=== PATIENT | female | born 1985 | race Hispanic/Latino ===

== ENCOUNTER 2021-03-29 15:01 | Outpatient (CLI) | payer OTHER ==
[2021-04-02 12:34] LABS: Vitamin D, 25-OH, D2 <4 ng/mL
== END 2021-03-29 15:02 | disposition home or self-care (01) ==
LOC: LAB 15:01
PROVIDERS: ATTEND Surgery
DX: Z13.1 Encounter for screening for diabetes mellitus (principal); E55.9 Vitamin D deficiency, unspecified; E66.01 Morbid (severe) obesity due to excess calories; K30 Functional dyspepsia
CPT/HCPCS: 36415; 82306; 83036

== ENCOUNTER → 2021-04-10 | Outpatient (CLI) | payer OTHER | END | disposition home or self-care (01) | LOC: SLR 11:00 | PROVIDERS: ATTEND Surgery | DX: G47.30 Sleep apnea, unspecified (principal) | CPT/HCPCS: 95810 ==

== ENCOUNTER 2021-04-24 09:08 | Outpatient (CLI) | payer OTHER ==
--- NOTE | 2021-04-24 13:17 | Fluoroscopy Report ---
BARIUM SWALLOW Indication: MORBID OBESITY. Technique: Single and double contrast barium technique utilized to evaluate the esophagus. FINDINGS: To begin the exam, swallowing was evaluated in the lateral position under direct fluorosco py. Swallowing was normal. No mucosal irregularity, mass, mass effect, or critical stenosis. There were no abnormal tertiary c ontractions as seen with dysmotility. No gastroesophageal reflux. IMPRESSION: Unremarkable exam. Fluoroscopic time: 1.0 minutes Number of fluoroscopic images: 27 Signer Name: Domingo Torres Jr, MD Signed: 04/24/2021 1:13 PM Workstation Name: [id number]
== END 2021-04-24 09:09 | disposition home or self-care (01) ==
LOC: FLUORO 09:08
PROVIDERS: ATTEND Surgery
DX: E66.01 Morbid (severe) obesity due to excess calories (principal)
CPT/HCPCS: 74220

== ENCOUNTER 2021-05-04 11:08 | Outpatient (CLI) | payer OTHER | END 2021-05-04 11:09 | disposition home or self-care (01) | LOC: LAB 11:08 | PROVIDERS: ATTEND Surgery | DX: E66.01 Morbid (severe) obesity due to excess calories (principal) | CPT/HCPCS: 36415; 82607; 84703 ==

== ENCOUNTER 2021-05-29 09:26 | Inpatient (IN) | payer OTHER ==
[2021-05-25 10:44] LABS: Hematocrit 36.2 % (30.3-42.9); Hemoglobin 11.8 gm/dl (10.1-14.3); Mean Corpuscular HGB Conc 33 % (30-34); Mean Corpuscular Volume 88 fl (79-97); Platelet Count 339 K/mm3 (140-440); Red Blood Count 4.12 M/mm3 (3.65-5.03); Red Cell Distribution Width 15.7 % (13.2-15.2)
[2021-05-25 11:06] LABS: Alanine Aminotransferase 15 units/L (7-56); BUN/Creatinine Ratio 10; Blood Urea Nitrogen 7 mg/dL (7-17); Calcium 8.9 mg/dL (8.4-10.2); Hemolysis Index 3
--- NOTE | 2021-05-25 11:08 | Anesthesia Consultation ---
Anesthesia Consult and Med Hx Date of service: 05/29/21 - Airway Anesthetic Teeth Evaluation: Good (missing implant #12 (screw remains), caps/veneers upper incisors) ROM Head & Neck: Adequate Mental/Hyoid Distance: Adequate Mallampati Class: Class II Intubation Access Assessment: Probably Good - Pulmonary Exam CTA: Yes - Cardiac Exam Cardiac Exam: RRR - Pre-Operative Health Status ASA Pre-Surgery Classification: ASA3 Proposed Anesthetic Plan: General - Pulmonary Hx Smoking: Yes (quit 6 yrs ago) Hx Respiratory Symptoms: No (normal PFTs) Hx Sleep Apnea: No (negative sleep study) - Cardiovascular System Hx Hypertension: No Hx Heart Attack/AMI: No (negative stress TTE w/ normal EF) Hx Cardia Arrhythmia: No - Central Nervous System CVA: No Hx Psychiatric Problems: Yes (depression) - Gastrointestinal Hx Gastroesophageal Reflux Disease: Yes (controlled with prilosec) - Endocrine Hx Renal Disease: No Hx Liver Disease: No Hx Insulin Dependent Diabetes: No Hx Non-Insulin Dependent Diabetes: No Hx Thyroid Disease: No - Other Systems Hx Obesity: Yes (BMI 42) - Additional Comments Anesthesia Medical History Comments: No hx anesthetic complications.
[~2021-05-29 09:26] MED LIST: ENOXAPARIN 40 MG/0.4 ML INJ SUB-Q NR; GABAPENTIN 500 MG/10 ML ORAL LIQD PO NR; LACTATED RINGERS 1,000 ML IV SCH; MIDAZOLAM 2 MG/2 ML INJ IV NR; SCOPOLAMINE TRANSDERMAL PATCH 72 HR TD NR; ceFAZolin/Water 2 GM/20 ML 2 GM/20 ML SYRINGE IV NR; metroNIDAZOLE/NS 500 MG/100 ML 500 MG/100 ML BAG IV NR
[2021-05-29] MEDS: ACETAMINOPHEN IV 1,000 MG/100 ML BOTTLE IV NR ×2 (11:30→20:49)
[2021-05-29] MEDS ORDERED: MAGNESIUM SULFATE 4 GM/100 ML BAG IV ONE (11:49)
[2021-05-29] MEDS ORDERED: BUPIVACAINE/PF (0.25%) 2.5 MG/ML 30 ML VIAL INFILTRATI ONE ×2 (11:50→12:42)
[2021-05-29] MEDS ORDERED: LIDOCAINE 1%/EPINEPHRINE 1:100,000 VIAL (20 ML) INFILTRATI ONE (11:50)
[2021-05-29] MEDS ORDERED: ONDANSETRON 4 MG/2 ML INJ IV PRN ×2 (11:56→16:00)
[2021-05-29] MEDS ORDERED: fentaNYL 100 MCG/2 ML INJ IV PRN (11:56)
--- NOTE | 2021-05-29 11:57 | Anesthesia Day of Surgery ---
Anesthesia Day of Surgery - Day of Surgery Patient Examined: Yes Patient H&P Reviewed: Yes Patient is NPO: Yes
--- OUTSIDE RECORDS SUMMARY | 2021-05-29 11:58 | External Medical Summary ---
:1985 Author Organization [facility], [facility] Address [address] [place] [address] Care Team Providers Name Role Phone Hari Nieves Unavailable [phone] PROBLEMS Type Condition ICD9-CM [id number] Onset Condition W/U Status Risk SNOM ED Notes Code Code Dates Status Code Problem Dietary Z71.3 Active confirmed 490898475 counseling and surveillance Problem Morbid E66.01 Active confirmed 064126892 (severe) obesity due to excess calories Problem Major F32.9 Active confirmed 25079128 depressive disorder, single episode, unspecified Problem Bipolar F31.9 Active confirmed 69706712 disorder, unspecified Problem Gastro-esopha K21.9 Active confirmed 401794 [id number] geal reflux disease without esophagitis Problem Benign G93.2 Active confirmed 63852781 intracranial hypertension Problem Sleep G47.9 Active confirmed 05003435 disorder, unspecified Problem Anxiety F41.9 Active confirmed 112913964 disorder, unspecified ALLERGIES No Known Allergies ENCOUNTERS from 1985 to 2021-05-29 Encounter Location Date Provider Diagnosis [address] [place], [facility] [place] [place] [id number] IMMUNIZATIONS No Information SOCIAL HISTORY Sex Assigned At : Social History Observation Description Sex Assigned At Unknown REASON FOR REFERRAL from 1985 to 2021-05-29 Diagnosis 1 Morbid (severe) obesity due to excess calories (E66.01) Diagnosis 2 Major depressive disorder, s jurgen episode, unspecified (F32.9) Diagnosis 3 Anxiety disorder, unspecifie d (F41.9) Diagnosis 4 Benign intracranial hyperten shawn (G93.2) Diagnosis 5 Gastro-esophageal reflux dis ease without esophagitis (K21.9) Diagnosis 6 Sleep disorder, unspecified (G47.9) Diagnosis 7 Bipolar disorder, unspecifie d (F31.9) Diagnosis 8 Dietary counseling and surve illance (Z71.3) Referral Organization [facility] Referring Provider First Name Hari Referring Provider Last Name Ezequiel Referring Provider Specialty Surgery Referred Provider [facility], - Referral Priority Routine VITAL SIGNS No information MEDICATIONS Medication SIG (Take, Route, Notes Start Date End Date Status Frequency, Duration) Ondansetron 4 MG 1-2 tablet on the tongue Apr, Active and allow to dissolve Orally q 4-6 hours prn pain for 30 day(s) PriLOSEC OTC 20 MG 1 tablet 30 minutes Active before morning meal Orally Once a day for 30 day(s) Xanax 1 MG 1 tablet Orally Twice a prn A ctive day Omeprazole 40 MG 1 capsule Orally Once a Apr, Active day for 30 day(s) traMADol HCl 50 MG 1 tablet as needed Active Orally Once a day SEROquel 200 MG 1 tablet at bedtime Active Orally Once a day for 30 day(s) Lexapro 20 MG 1 tablet Orally Once a Active day for 30 day(s) LaMICtal 150 MG 1 tablet Orally Once a Active day for 30 day(s) [place] [employer] Carbonate ER 450 1 tablet at bedtime bid Active MG Orally Once a day for 30 day(s) PROCEDURES No Information RESULTS No Results REASON FOR VISIT Gastric Bypass MEDICAL (GENERAL) HISTORY Type Description Date Medical History pseudo tumor cerebri Medical History depression Medical History anxiety Medical History gerd Medical History bipolar Surgical History Surgical History abdominoplasty 2018 Surgical History breast augmentation 2018 Hospitalization History as above Goals Section No Information Health Concerns No Information MEDICAL EQUIPMENT No Information MENTAL STATUS No Information FUNCTIONAL STATUS No Information ASSESSMENTS No Information PLAN OF TREATMENT Medication Medication Name Sig Start Date Stop Date Omeprazole 40 MG 1 capsule Orally Once a day for 30 day(s) 24 p2020 Ondansetron 4 MG 1-2 tablet on the tongue and allow to 24 Apr, 021 dissolve Orally q 4-6 hours prn pain for 30 day(s) Referrals Referral Date Details Insurance Providers Payer Name Payer Payer Insured Patient Coverage Coverage End Address Phone Name Relationship to Start Date Shamir e Insured [employer] [address] Kelsey Young [facility] [address]
[2021-05-29] MEDS ORDERED: LIDOCAINE MPF (2%) 20 MG/1 ML VIAL 5 ML ONE ×5 (11:59→13:21)
[2021-05-29] MEDS ORDERED: ROCURONIUM 50 MG/5 ML INJ IV ONE ×2 (11:59→13:21)
[2021-05-29] MEDS ORDERED: KETAMINE/STERILE WATER 50 MG/ML SYRINGE ONE (11:59)
[2021-05-29] MEDS ORDERED: SODIUM CHLORIDE 0.9% IRR 1,500 ML BOTTLE IR ONE (12:42)
[2021-05-29] MEDS ORDERED: LIDOCAINE 0.5%/EPINEPHRINE 1:200,000 VIAL (50 ML) MDV INFILTRATI ONE (12:42)
[2021-05-29] MEDS ORDERED: dexAMETHasone 20 MG/5 ML VIAL ONE (13:20)
[2021-05-29] MEDS ORDERED: SODIUM CHLORIDE P/F VIAL 10 ML 10 ML ONE (13:21)
[2021-05-29] MEDS ORDERED: propofoL 200 MG/20 ML VIAL IV ONE (13:52)
[2021-05-29] MEDS ORDERED: NEOSTIGMINE 10MG/10 ML INJ MDV ONE (14:31)
[2021-05-29] MEDS ORDERED: GLYCOPYRROLATE 0.4 MG/2 ML INJ ONE ×2 (14:31→15:11)
[2021-05-29] MEDS ORDERED: LACTATED RINGERS 1,000 ML ONE (14:31)
[2021-05-29] MEDS ORDERED: KETOROLAC 30 MG/1 ML INJ ONE (14:36)
[2021-05-29] MEDS ORDERED: hydrALAZINE 20 MG/1 ML INJ IV PRN (15:00)
[2021-05-29] MEDS ORDERED: LACTATED RINGERS 1,000 ML IV SCH (15:00)
--- NOTE | 2021-05-29 15:01 | Operative Report ---
Operative Report Operative Report: DATE OF PROCEDURE: 05/29/2021 SURGEON: Hari Nieves M.D. WARP KNIT OPERATOR: Shana Pineda CSA MD PREOPERATIVE DIAGNOSIS: Morbid obesity. POSTOPERATIVE DIAGNOSES: Morbid obesity PROCEDURES PERFORMED: 1. Laparoscopic gastric bypass. 2. EGD. ANESTHESIA: General endotracheal tube intubation. SPECIMENS: None. ESTIMATED BLOOD LOSS: Less than 20 mL. FINDINGS: Normal anatomy. COMPLICATIONS: None. INDICATION: Ms. Young is a 36-year-old female with history of morbid obesity and GERD who is here for bariatric surgery for weight loss. She signed informed consent and expressed understanding of risks and benefits. DESCRIPTION OF PROCEDURE: Patient was brought to the OR suite, laid in supine position. Bilateral lower extremity SCDs were placed. General anesthesia was induced via successful endotracheal tube intubation. Patient's abdomen was prepped and draped in sterile fashion. A veress needle was used to insuflate the abdomen to a pressure of 18 mmHg in the left subcostal region. Using Optiview technique, a 5- mm trocar was placed into the abdominal cavity under direct vision just superior and to the left of the umbilicus. There was noted to be no gross injury to any intraabdominal structures. 12 mm in the right mid abdomen mid clavicular line and three 5-mm trocars in the right upper quadrant, epigastric areas were placed under direct visualization. At this time, the ligament of Treitz identified and followed down approximately 60 cm and the jejunum was transected. The distal segment of jejunum was then traced for approximately 80 cm and a stable [id number] jejunojejunostomy was performed. The common enterotomy was closed with 2 firings of the endoscopic stapler. The mesenteric defect was closed with running Surgidac suture. This anastomosis was found to be patent without kink, obstruction or bleeding. At this time, the patient was placed in steep reverse Trendelenburg position. A liver retractor was placed through the epigastric port to elevate the left lateral lobe of the liver. A small gastric pouch was formed with serial firings of the blue load on a laparoscopic stapler. The Joy limb was then brought in an antegastric antecolic fashion and secured with 2 stay sutures to the gastric pouch. After this, the enterotomies were made with Harmonic scalpel, and a [id number] stapled gastrojejunostomy was performed with a mechanical stapler. After this, a 2-layer running closure using absorbable V-lock suture were done, the first being mucosal approximation prior to completion of the first layer. Then I passed and an EGD scope beyond the anastomosis to act as a stent. The first layer was completed, the second was then performed. After this, the EGD was retracted slightly. A bowel clamp was placed in a proximal Joy limb. The anastomosis was submerged under saline. Via intraluminal EGD insufflation, there was noted be no bubbles in the saline indicating an airtight anastomosis. There was noted to be no obstruction or bleeding intraluminally in the pouch or the anastomosis. At this time, the scope was removed. The saline was aspirated. Vistaseal was placed over the anastomosis. All trocars were removed under direct visualization and the abdomen was then desufflated. A TAP block was performed using a total of 60 mL 0.25% Marcaine along bilateral mid axillary lines starting at the subcostal margin at the level of the umbilicus. The 12mm trocar site was closed using POD and a Leland Yamile device for fear that after surgery it become incarcerated. The skin incisions were closed with 4-0 Monocryl followed by Dermabond dressings. Patient was awoken and taken to recovery in stable condition. All counts were correct.
[2021-05-29] MEDS ORDERED: GLYCOPYRROLATE 0.4 MG/2 ML INJ IV NR (15:22)
[2021-05-29] MEDS ORDERED: HYDROmorphone 1 MG/1 ML INJ IV PRN (15:30)
[2021-05-29] MEDS ORDERED: HYDROcodone/Acetaminophen 7.5-325MG-15ML ORAL LIQD PO PRN (16:00)
[2021-05-29] MEDS ORDERED: MORPHINE 2 MG/1 ML INJ IV PRN (16:00)
[2021-05-29] MEDS ORDERED: METOCLOPRAMIDE 10 MG/2 ML INJ IV PRN (16:00)
--- NOTE | 2021-05-29 16:05 | Post Anesthesia Evaluation ---
- Post Anesthesia Evaluation Patient Participated: Yes Airway Patent: Yes Stable Respiratory Function: Yes Nausea/Vomiting: No Temp > 96.8F: Yes Pain Manageable: Yes Adequeate Hydration: Yes Anesthesia Complications: No
[2021-05-29] MEDS: metroNIDAZOLE/NS 500 MG/100 ML 500 MG/100 ML BAG IV SCH (16:27)
[2021-05-29] MEDS: ACETAMINOPHEN IV 1,000 MG/100 ML BOTTLE IV SCH ×2 (17:12→22:30)
[2021-05-29] MEDS: PANTOPRAZOLE 40 MG INJ IV SCH (17:12)
[2021-05-29] MEDS: KETOROLAC 30 MG/1 ML INJ IV SCH ×2 (17:22→20:48)
[2021-05-29] MEDS ORDERED: LORazepam 2 MG/ML VIAL IV PRN (17:34)
[2021-05-29] MEDS: ceFAZolin/NS 1 GM/50 ML 1 GM/50 ML BAG IV SCH (18:05)
[2021-05-29] MEDS: HYDROmorphone 1 MG/1 ML INJ IV PRN (22:00)
[2021-05-29] MEDS ORDERED: LAMOTRIGINE 100 MG PO SCH (22:00)
[2021-05-30] MEDS: ceFAZolin/NS 1 GM/50 ML 1 GM/50 ML BAG IV SCH (00:30)
[2021-05-30] MEDS: SIMETHICONE 80 MG CHEW TAB PO PRN ×2 (00:57→13:37)
[2021-05-30] MEDS: HYDROmorphone 1 MG/1 ML INJ IV PRN ×2 (00:57→07:52)
[2021-05-30] MEDS: metroNIDAZOLE/NS 500 MG/100 ML 500 MG/100 ML BAG IV SCH ×2 (01:00→14:15)
[2021-05-30] MEDS: KETOROLAC 30 MG/1 ML INJ IV SCH ×3 (03:45→16:19)
[2021-05-30 08:17] LABS: Basophils % (Auto) 0.2 % (0.0-1.8); Eosinophils % (Auto) 0.1 % (0.0-4.3); Hematocrit 28.3 % (30.3-42.9); Hemoglobin 9.1 gm/dl (10.1-14.3); Lymphocytes # (Auto) 2.3 K/mm3 (1.2-5.4); Lymphocytes % (Auto) 19.5 % (13.4-35.0); Mean Corpuscular HGB Conc 32 % (30-34); Mean Corpuscular Volume 87 fl (79-97); Monocytes # (Auto) 0.8 K/mm3 (0.0-0.8); Monocytes % (Auto) 6.4 % (0.0-7.3); Platelet Count 335 K/mm3 (140-440); Red Blood Count 3.27 M/mm3 (3.65-5.03); Red Cell Distribution Width 14.6 % (13.2-15.2)
[2021-05-30 08:32] LABS: Alanine Aminotransferase 16 units/L (7-56); Albumin 3.8 g/dL (3.9-5); Blood Urea Nitrogen 11 mg/dL (7-17); Calcium 8.7 mg/dL (8.4-10.2); Hemolysis Index 4
[2021-05-30 08:39] LABS: BUN/Creatinine Ratio 16
[2021-05-30] MEDS ORDERED: ENOXAPARIN 40 MG/0.4 ML INJ SUB-Q SCH (10:00)
[2021-05-30] MEDS ORDERED: NON-FORMULARY EACH (Escitalopram Oxalate [Lexapro] 20 MG Tablet) PO SCH (10:00)
[2021-05-30] MEDS: PANTOPRAZOLE 40 MG INJ IV SCH (10:49)
[2021-05-30] MEDS: ACETAMINOPHEN IV 1,000 MG/100 ML BOTTLE IV SCH ×2 (13:23→14:16)
--- NOTE | 2021-05-30 13:59 | Discharge Summary ---
Providers - Providers Date of Admission: 05/29/21 09:26 Date of discharge: 05/30/21 Attending physician: PRINCESS ALEXANDRA MD 05/29/21 14:52 Physical Therapy Evaluation and Treat [CONS] Routine Comment: Reason For Exam: s/p bariatric surgery Primary care physician: MARGI MATUTE Hospitalization Reason for admission: post bariatric surgery Condition: Good Procedures: lap gastric bypass Hospital course: Patient was admitted status post an uneventful laparoscopic gastric bypass. P dre remained afebrile and stable throughout her hospital stay with acceptable vital signs and laboratory values. Patient was discharged home on postop day 1 tolerating clear liquid diet ambulating well and showing no gross clinical signs of leak or bleeding. Disposition: 01 HOME / SELF CARE / HOMELESS Final Discharge Diagnosis (Prints w/discharge instructions): morbid obesity, gerd, pseudo tumore cerebri Core Measure Documentation - Palliative Care Palliative Care/ Comfort Measures: Not Applicable - Core Measures Any of the following diagnoses?: none Exam - Constitutional Vitals: Temp Pulse Resp BP Pulse Ox 98.0 F 63 16 115/68 98 05/30/21 11:20 05/30/21 03:05 05/30/21 11:20 05/30/21 11:20 05/30/21 10:00 General appearance: Present: no acute distress, obese - EENT Eyes: Absent: scleral icterus - Respiratory Respiratory effort: normal - Cardiovascular Heart Sounds: Present: S1 & S2 - Extremities Extremities: no ischemia - Abdominal General gastrointestinal: Present: other (Incisions clean dry and intact, probably tender palpation) Plan Activity: advance as tolerated Diet: clear liquids Wound: open to air, keep clean and dry Follow up with: MARGI MATUTE MD [Primary Care Provider] - 7 Days
[2021-05-30] MEDS ORDERED: metroNIDAZOLE/NS 500 MG/100 ML 500 MG/100 ML BAG IV SCH (15:00)
[2021-05-30 16:08] VITALS: BP 132/74
== END 2021-05-30 17:00 | disposition home or self-care (01) | DRG 621 ==
LOC: 3A 09:26 → 4A 11:47
PROVIDERS: ADMIT Surgery; ATTEND Surgery
PROC: 0D164ZA Bypass Stomach to Jejunum, Percutaneous Endoscopic Approach (ICD-10-PCS; principal; 2021-05-29)
PROC: 3E0T3BZ Introduction of Anesthetic Agent into Peripheral Nerves and Plexi, Percutaneous Approach (ICD-10-PCS; 2021-05-29)
PROC: 3E0T33Z Introduction of Anti-inflammatory into Peripheral Nerves and Plexi, Percutaneous Approach (ICD-10-PCS; 2021-05-29)
DX: E66.01 Morbid (severe) obesity due to excess calories (principal); K21.9 Gastro-esophageal reflux disease without esophagitis; F41.9 Anxiety disorder, unspecified; Z20.822 Contact with and (suspected) exposure to COVID-19; G93.2 Benign intracranial hypertension; F31.9 Bipolar disorder, unspecified; Z68.41 Body mass index [BMI] 40.0-44.9, adult; Z79.899 Other long term (current) drug therapy; Z87.891 Personal history of nicotine dependence
CPT/HCPCS: 36415; 80053; 84703; 85025; 85027; G0378; C9113; J0131; J0690; J1100; J1170; J1650; J1885; J2270; J2405; J2704; J2710; J3475; J3490; J7120; U0003

== ENCOUNTER 2021-06-28 10:02 | Outpatient (CLI) | payer OTHER ==
[2021-06-28 10:26] LABS: Basophils % (Auto) 0.3 % (0.0-1.8); Eosinophils # (Auto) 0.1 K/mm3 (0.0-0.4); Eosinophils % (Auto) 2.7 % (0.0-4.3); Hematocrit 35.2 % (30.3-42.9); Hemoglobin 11.1 gm/dl (10.1-14.3); Lymphocytes # (Auto) 1.5 K/mm3 (1.2-5.4); Mean Corpuscular HGB Conc 32 % (30-34); Mean Corpuscular Volume 86 fl (79-97); Monocytes # (Auto) 0.4 K/mm3 (0.0-0.8); Monocytes % (Auto) 9.4 % (0.0-7.3); Platelet Count 276 K/mm3 (140-440); Red Blood Count 4.12 M/mm3 (3.65-5.03); Red Cell Distribution Width 16.8 % (13.2-15.2)
[2021-06-28 13:37] LABS: Alanine Aminotransferase 13 units/L (7-56); Albumin 4.2 g/dL (3.9-5); BUN/Creatinine Ratio 18; Blood Urea Nitrogen 14 mg/dL (7-17); Calcium 9.1 mg/dL (8.4-10.2); Chol/HDL Ratio 5.08 %; HDL Cholesterol 34 mg/dL (40-59); Hemolysis Index 4; Iron 12 ug/dL (37-170); LDL Cholesterol,Direct 108 mg/dL (50-130); Total Iron Binding Capacity 240 mcg/dL (250-450)
== END 2021-06-28 10:03 | disposition home or self-care (01) ==
LOC: LAB 10:02
PROVIDERS: ATTEND Surgery
DX: K30 Functional dyspepsia (principal); E66.01 Morbid (severe) obesity due to excess calories; K90.9 Intestinal malabsorption, unspecified; E55.9 Vitamin D deficiency, unspecified; Z98.84 Bariatric surgery status
CPT/HCPCS: 36415; 80053; 80061; 82306; 82728; 83550; 83970; 84425; 84443; 85025